=== PATIENT | female | born 1950 | race Two or more races ===

== ENCOUNTER 2018-06-28 21:31 | Emergency (ER) | payer MEDICARE, OTHER ==
[~2018-06-28] VITALS: Ht 167.6 cm; Wt 57.0 kg
[2018-06-29 01:26] VITALS: BP 118/59
== END 2018-06-29 01:26 | disposition home or self-care (01) ==
LOC: ER 21:31
DX: J06.9 Acute upper respiratory infection, unspecified (principal); F17.200 Nicotine dependence, unspecified, uncomplicated
CPT/HCPCS: 71045; 99283